=== PATIENT | female | born 2000 | race Caucasian/White ===

== ENCOUNTER 2022-08-05 19:13 | Emergency (ER) | payer OTHER ==
[2022-08-05 20:51] VITALS: BP 106/65; PULSE 88; RESP 18; TEMP 98.8; BMI 29.2
== END 2022-08-05 21:14 | disposition home or self-care (01) ==
LOC: FER 19:13
DX: R42 Dizziness and giddiness (principal)
CPT/HCPCS: 93005; 99283-25